=== PATIENT | female | born 1995 | race Caucasian/White ===

== ENCOUNTER 2018-04-10 12:39 | Emergency (ER) | payer OTHER ==
[2018-04-10] MEDS ORDERED: ONDANSETRON 4 MG/2 ML VIAL ONE (13:36)
[2018-04-10] MEDS ORDERED: NA CHLORIDE 0.9% 1,000 ML ONE (13:36)
[2018-04-10 14:06] LABS: Absolute Lymphocytes (CBC) 0.7 K/uL (0.7-4.9); Absolute Monocytes 0.3 K/uL (0.1-1.3); Absolute Neutrophil 2.6 K/uL (1.8-8.0); Basophils % 0.4 % (0-1.3); Eosinophils % 0.3 % (0-4.4); Hematocrit 41.2 % (36.0-45.0); Lymphocytes % 20.2 % (15.3-44.8); MCH 28.8 pg (27.0-35.0); MCV 84.4 fL (80-100); MPV 10.3 fL (7.6-11.3); Monocytes % 9.2 % (3.3-12.3); RBC Red Blood Cell Count 4.88 M/uL (3.86-4.86)
[2018-04-10 14:08] LABS: Bilirubin Direct 0.1 mg/dL (0-0.2); Bilirubin Total 0.4 mg/dL (0.2-1.0); Potassium 4.3 mmol/L (3.5-5.1); Protein, Total 7.6 g/dL (6.4-8.2)
[2018-04-10 14:26] LABS: Urine Blood TRACE (NEG); Urine Glucose NEGATIVE (NEG); Urine Protein NEGATIVE (NEG); Urine Specific Gravity 1.005 (1.005-1.030)
--- NOTE | 2018-04-10 14:33 | ER ---
Nurse's Notes [facility] Name: Abena Carr Age: 22 yrs Sex: Female : 1995 Arrival Date: 04/10/2018 Time: 12:44 Bed 20 Private MD: None, None Diagnosis: Vomiting;Dizziness;Gastroenteritis Presentation: 04/10 12:48 Presenting complaint: Patient states: N/V/D for 3 days and I have been light headed for la1 the last couple days. Also my ribs are hurting on the left sidde. Transition of care: patient was not received from another setting of care. Onset of symptoms was April 10, 2018. Risk Assessment: Do you want to hurt yourself or someone else? Patient reports no desire to harm self or others. Initial Sepsis Screen: Does the patient meet any 2 criteria? No. Patient's initial sepsis screen is negative. Does the patient have a suspected source of infection? No. Patient's initial sepsis screen is negative. Care prior to arrival: None. 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 - Social history:: Smoking status: Patient/guardian denies using tobacco. - Ebola Screening: : No symptoms or risks identified at this time. Screenin:15 Abuse screen: Denies threats or abuse. Nutritional screening: No deficits noted. em Tuberculosis screening: No symptoms or risk factors identified. Fall Risk None identified. Assessment: 13:16 General: Appears in no apparent distress. comfortable, Behavior is calm, cooperative, em appropriate for age, Denies fever. Pain: Complains of pain in left lateral aspect of lower chest Pain currently is 1 out of 10 on a pain scale. Neuro: Level of Consciousness is awake, alert, obeys commands, Oriented to person, place, time, situation, Reports dizziness, Denies weakness headache. Cardiovascular: Capillary refill < 3 seconds Patient's skin is warm and dry. Respiratory: Airway is patent Respiratory effort is even, unlabored, Respiratory pattern is regular, symmetrical. GI: Abdomen is flat, Bowel sounds present X 4 quads. Abd is soft and non tender X 4 quads. Reports nausea, vomiting, Patient currently denies diarrhea. : Urine is clear, Denies burning with urination. EENT: No signs and/or symptoms were reported regarding the EENT system. Derm: Skin is intact, Skin is pink, warm \T\ dry. Musculoskeletal: Range of motion: intact in all extremities. 13:16 Reassessment: I agree with assessment completed by Petey Lew LVN . aa5 14:12 Reassessment: Patient appears in no apparent distress at this time. Patient and/or em family updated on plan of care and expected duration. Pain level reassessed. Patient is alert, oriented x 3, equal unlabored respirations, skin warm/dry/pink. nausea and dizziness improved, rates pain 1/10 Patient states symptoms have improved. 14:50 Reassessment: Patient appears in no apparent distress at this time. Patient and/or em family updated on plan of care and expected duration. Pain level reassessed. Patient is alert, oriented x 3, equal unlabored respirations, skin warm/dry/pink. Patient denies pain at this time. Patient states feeling better. Patient states symptoms have improved. Vital Signs: 12:48 BP 131 / 87; Pulse 72; Resp 16; Temp 97.6; Pulse Ox 98% on R/A; Weight 52.16 kg; Height la1 5 ft. 6 in. (167.64 cm); 14:12 BP 121 / 56; Pulse 68; Resp 18; Pulse Ox 99% on R/A; Pain 1/10; em 12:48 Body Mass Index 18.56 (52.16 kg, 167.64 cm) la1 ED Course: 12:44 Patient arrived in ED. sb2 12:45 None, None is Private Physician. sb2 12:48 Arm band placed on right wrist. la1 12:49 Triage completed. la1 12:57 Diego Bales PA is PHCP. jr8 12:58 Wenceslao Haddad MD is Attending Physician. jr8 13:15 Patient has correct armband on for positive identification. Placed in gown. Bed in low em position. Call light in reach. Adult w/ patient. 13:25 Petey Lew LVN is Primary Nurse. em 13:35 Initial lab(s) drawn, by me, sent to lab. Inserted saline lock: 20 gauge in right em antecubital area, using aseptic technique. Blood collected. 14:49 No provider procedures requiring assistance completed. IV discontinued, intact, em bleeding controlled, No redness/swelling at site. Pressure dressing applied. Administered Medications: 13:42 Drug: Zofran 4 mg Route: IVP; Site: right antecubital; aa5 14:29 Follow up: Response: No adverse reaction; Nausea is decreased em 13:43 Drug: NS 0.9% 1000 ml Route: IV; Rate: 1000 ml; Site: right antecubital; em 14:51 Follow up: IV Status: Completed infusion; IV Intake: 1000ml em Intake: 14:51 IV: 1000ml; Total: 1000ml. em Outcome: 14:32 Discharge ordered by MD. fowler 14:49 Discharged to home ambulatory, with family. em 14:49 Condition: good 14:49 Discharge instructions given to patient, Instructed on discharge instructions, follow up and referral plans. medication usage, Demonstrated understanding of instructions, follow-up care, medications, Prescriptions given X 1. 14:54 Patient left the ED. em Signatures: Petey Lew LVN LVN em Adriane Cronin RN RN aa5 Diego Bales PA PA jr8 Valentin Green RN RN la1 Marjan Esquivel sb2 Corrections: (The following items were deleted from the chart) 18:11 13:16 Pain: Complains of pain in left upper quadrant Pain currently is 1 out of 10 on a aa5 pain scale. em
--- NOTE | 2018-04-10 14:33 | EDPHYS ---
Physician Documentation [facility] Name: Abena Carr Age: 22 yrs Sex: Female : 1995 Arrival Date: 04/10/2018 Time: 12:44 Bed 20 Private MD: None, None ED Physician Wenceslao Haddad HPI: 04/10 14:04 This 32 yrs old Female presents to ER via Ambulatory with complaints of Vomiting, jr8 Dizziness. 14:04 The patient presents to the emergency department with nausea, vomiting, diarrhea. jr8 Onset: The symptoms/episode began/occurred acutely, 3 day(s) ago. Possible causes: unknown. The symptoms are aggravated by food , The symptoms are alleviated by nothing. Associated signs and symptoms: Pertinent positives: dizziness. Severity of symptoms: At their worst the symptoms were moderate in the emergency department the symptoms have improved. The patient has not experienced similar symptoms in the past. The patient has not recently seen a physician. Stated that she thinks she has a stomach bug. Stated that she has had three days of n/v/d. Vomiting has subsided but still has nausea and diarrhea. Feels dizzy when sitting up. Still cannot eat but is able to hold down fluids . 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 - Social history:: Smoking status: Patient/guardian denies using tobacco. - Ebola Screening: : No symptoms or risks identified at this time. ROS: 14:04 Eyes: Negative for injury, pain, redness, and discharge, ENT: Negative for injury, jr8 pain, and discharge, Neck: Negative for injury, pain, and swelling, Cardiovascular: Negative for chest pain, palpitations, and edema, Respiratory: Negative for shortness of breath, cough, wheezing, and pleuritic chest pain, Back: Negative for injury and pain, MS/Extremity: Negative for injury and deformity, Skin: Negative for injury, rash, and discoloration, Neuro: Negative for headache, weakness, numbness, tingling, and seizure. 14:04 Abdomen/GI: Positive for nausea, vomiting, and diarrhea, abdominal cramps, Negative for abdominal pain, abdominal distension, anorexia, dysphagia, hematemesis, black/tarry stool, rectal pain, rectal bleeding, bowel incontinence, flatulence. Exam: 14:04 Eyes: Pupils equal round and reactive to light, extra-ocular motions intact. Lids and jr8 lashes normal. Conjunctiva and sclera are non-icteric and not injected. Cornea within normal limits. Periorbital areas with no swelling, redness, or edema. ENT: Nares patent. No nasal discharge, no septal abnormalities noted. Tympanic membranes are normal and external auditory canals are clear. Oropharynx with no redness, swelling, or masses, exudates, or evidence of obstruction, uvula midline. Mucous membranes moist. Neck: Trachea midline, no thyromegaly or masses palpated, and no cervical lymphadenopathy. Supple, full range of motion without nuchal rigidity, or vertebral point tenderness. No Meningismus. Cardiovascular: Regular rate and rhythm with a normal S1 and S2. No gallops, murmurs, or rubs. Normal PMI, no JVD. No pulse deficits. Respiratory: Lungs have equal breath sounds bilaterally, clear to auscultation and percussion. No rales, rhonchi or wheezes noted. No increased work of breathing, no retractions or nasal flaring. Abdomen/GI: Soft, non-tender, with normal bowel sounds. No distension or tympany. No guarding or rebound. No evidence of tenderness throughout. Back: No spinal tenderness. No costovertebral tenderness. Full range of motion. Skin: Warm, dry with normal turgor. Normal color with no rashes, no lesions, and no evidence of cellulitis. MS/ Extremity: Pulses equal, no cyanosis. Neurovascular intact. Full, normal range of motion. Neuro: Awake and alert, GCS 15, oriented to person, place, time, and situation. Cranial nerves II-XII grossly intact. Motor strength 5/5 in all extremities. Sensory grossly intact. Cerebellar exam normal. Normal gait. Vital Signs: 12:48 BP 131 / 87; Pulse 72; Resp 16; Temp 97.6; Pulse Ox 98% on R/A; Weight 52.16 kg; Height la1 5 ft. 6 in. (167.64 cm); 14:12 BP 121 / 56; Pulse 68; Resp 18; Pulse Ox 99% on R/A; Pain 1/10; em 12:48 Body Mass Index 18.56 (52.16 kg, 167.64 cm) la1 MDM: 12:59 Patient medically screened. [facility] 14:31 Data reviewed: vital signs, nurses notes, lab test result(s), and as a result, I will jr8 discharge patient. Data interpreted: Pulse oximetry: on room air is 99 %. Interpretation: normal. Counseling: I had a detailed discussion with the patient and/or guardian regarding: the historical points, exam findings, and any diagnostic results supporting the discharge/admit diagnosis, lab results, the need for outpatient follow up, a family practitioner, to return to the emergency department if symptoms worsen or persist or if there are any questions or concerns that arise at home. Response to treatment: the patient's symptoms have markedly improved after treatment, patient is well hydrated. 04/10 13:22 Order name: Basic Metabolic Panel; Complete Time: 14:09 [facility] 04/10 13:22 Order name: CBC with Diff; Complete Time: 14:22 [facility] 04/10 13:22 Order name: Creatinine for Radiology; Complete Time: 14:09 [facility] 04/10 13:22 Order name: Hepatic Function; Complete Time: 14: [facility] 04/10 13:22 Order name: Lipase; Complete Time: 14: [facility] 04/10 13:33 Order name: Urine Dipstick--Ancillary (enter results); Complete Time: 14:30 04/10 13:22 Order name: IV Saline Lock; Complete Time: 13:43 [facility] 04/10 13:22 Order name: Labs collected and sent; Complete Time: 13:43 [facility] 04/10 13:22 Order name: Urine Test (obtain specimen); Complete Time: 13:25 [facility] 04/10 13:22 Order name: Urine Dipstick-Ancillary (obtain specimen); Complete Time: 13:25 [facility] Administered Medications: 13:42 Drug: Zofran 4 mg Route: IVP; Site: right antecubital; aa5 14:29 Follow up: Response: No adverse reaction; Nausea is decreased em 13:43 Drug: NS 0.9% 1000 ml Route: IV; Rate: 1000 ml; Site: right antecubital; em 14:51 Follow up: IV Status: Completed infusion; IV Intake: 1000ml em Disposition: 04/11 09:58 Co-signature as Attending Physician, Wenceslao Haddad MD. Disposition: 04/10/18 14:32 Discharged to Home. Impression: Vomiting, Dizziness, Gastroenteritis. - Condition is Stable. - Discharge Instructions: Nausea and Vomiting, Adult. - Prescriptions for Zofran 4 mg Oral Tablet - take 1 tablet by ORAL route every 12 hours As needed; 20 tablet. - Medication Reconciliation Form, Thank You Letter, Antibiotic Education, Prescription Opioid Use form. - Follow up: Private Physician; When: 2 - 3 days; Reason: Recheck today's complaints, Continuance of care, Re-evaluation by your physician. - Problem is new. - Symptoms have improved. Signatures: Dispatcher [employer] EDMS Petey Lew, BUILDING TRADES INSTRUCTOR BUILDING TRADES INSTRUCTOR Adriane Schroeder, RN RN aa5 Diego Bales PA PA jr8 Valentin Green RN RN la1 Wenceslao Haddad MD MD Corrections: (The following items were deleted from the chart) 04/10 14:54 14:32 04/10/2018 14:32 Discharged to Home. Impression: Vomiting; Dizziness; em Gastroenteritis. Condition is Stable. Forms are Medication Reconciliation Form, Thank You Letter, Antibiotic Education, Prescription Opioid Use. Follow up: Private Physician; When: 2 - 3 days; Reason: Recheck today's complaints, Continuance of care, Re-evaluation by your physician. Problem is new. Symptoms have improved. jr8
== END 2018-04-10 14:54 | disposition home or self-care (01) ==
LOC: ER 12:39 → EDBD 12:39 → ER 14:54
DX: K52.9 Noninfective gastroenteritis and colitis, unspecified (principal); R42 Dizziness and giddiness
CPT/HCPCS: 36415; 80048; 80076; 81003; 83690; 85025; 96361; 96374; 99284; J2405; J7030

== ENCOUNTER 2018-05-07 11:42 | Emergency (ER) | payer OTHER ==
[2018-05-07 14:29] LABS: Urine Bacteria 20-50 /HPF (<20); Urine Culture Reflex Order NOT NEEDED; Urine Mucus 2+ /HPF (NONE SEEN); Urine RBC <5 /HPF (NONE SEEN)
--- NOTE | 2018-05-07 14:57 | ER ---
Nurse's Notes [facility] Name: Abena Carr Age: 22 yrs Sex: Female : 1995 Arrival Date: 05/07/2018 Time: 11:44 Bed 10 Private MD: Syed Alvarez E Diagnosis: Urinary tract infection, site not specified;Candidal cystitis and urethritis Presentation: 05/07 12:04 Presenting complaint: Patient states: seen her PCP on and dx with UTI sent home sv with Fluconazole and started having white vaginal discharge yesterday and today started having some brownish vaginal discharge. Transition of care: patient was not received from another setting of care. Onset of symptoms was May 04, 2018. Care prior to arrival: None. 12:04 Method Of Arrival: Ambulatory sv 12:04 Acuity: BRENNA 4 sv 15:04 Risk Assessment: Do you want to hurt yourself or someone else? Patient reports no ss desire to harm self or others. Initial Sepsis Screen: Does the patient meet any 2 criteria? No. Patient's initial sepsis screen is negative. Does the patient have a suspected source of infection? Yes: Dysuria/Frequency/Urgency/UTI. Triage Assessment: 12:04 General: Appears in no apparent distress. uncomfortable, Behavior is calm, cooperative, sv appropriate for age. Pain: Denies pain. EENT: No signs and/or symptoms were reported regarding the EENT system. Neuro: Level of Consciousness is awake, alert, obeys commands, Oriented to person, place, time, situation, Moves all extremities. Full function Gait is steady. Respiratory: Respiratory effort is even, unlabored, Respiratory pattern is regular, symmetrical. 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 - Social history:: Smoking status: Patient/guardian denies using tobacco. - Ebola Screening: : No symptoms or risks identified at this time. Screenin:01 Abuse screen: Denies threats or abuse. Denies injuries from another. Nutritional ss screening: No deficits noted. Tuberculosis screening: No symptoms or risk factors identified. Never had TB. Fall Risk None identified. Assessment: 14:01 General: Appears in no apparent distress. comfortable, Behavior is calm, cooperative, ss appropriate for age, Denies fever, feeling ill, fatigue, chills. Neuro: Level of Consciousness is awake, alert, obeys commands, Oriented to person, place, time. Cardiovascular: Capillary refill < 3 seconds is brisk in bilateral fingers. Respiratory: Airway is patent Respiratory effort is even, unlabored, Respiratory pattern is regular, symmetrical. GI: Patient currently denies abdominal pain, diarrhea, nausea, vomiting. : Reports white-brown vaginal discharge since yesterday. EENT: Throat is clear. Derm: Skin is intact, is healthy with good turgor, Skin is pink, warm \T\ dry. normal. Vital Signs: 12:06 BP 131 / 78; Pulse 88; Resp 16; Temp 98.6; Pulse Ox 100% ; Weight 52.16 kg; Height 5 sv ft. 6 in. (167.64 cm); Pain 0/10; 12:06 Body Mass Index 18.56 (52.16 kg, 167.64 cm) sv ED Course: 11:44 Patient arrived in ED. sb2 11:45 Syed Alvarez MD is Private Physician. sb2 11:59 Haily Dunn FNP-C is [facility]. snw 11:59 Daren Arredondo MD is Attending Physician. snw 12:05 Triage completed. sv 12:06 Arm band placed on. sv 14:01 Unique Davis RN is Primary Nurse. ss 14:01 Patient has correct armband on for positive identification. Bed in low position. Call ss light in reach. 14:55 Syed Alvarez MD is Referral Physician. snw 15:03 No provider procedures requiring assistance completed. Patient did not have IV access ss during this emergency room visit. Administered Medications: No medications were administered Outcome: 14:56 Discharge ordered by . snw 15:03 Discharged to home ambulatory, with significant other. ss 15:03 Condition: good 15:03 Discharge instructions given to patient, Instructed on discharge instructions, follow up and referral plans. medication usage, Demonstrated understanding of instructions, follow-up care, medications, Prescriptions given X Pt instructed to continue her BACTRIM and FLUCONAZOLE as previously prescribed 15:04 Patient left the ED. ss Signatures: Lula Cowan RN RN Haily Dunn FNP-C FNP-Csnw Unique Davis, RN RN ss Marjan Esquivel sb2
--- NOTE | 2018-05-07 14:57 | EDPHYS ---
Physician Documentation [facility] Name: Abena Carr Age: 22 yrs Sex: Female : 1995 Arrival Date: 05/07/2018 Time: 11:44 Bed 10 Private MD: Syed Alvarez E ED Physician Daren Arredondo HPI: 05/07 14:02 This 22 yrs old Female presents to ER via Ambulatory with complaints of snw Urinary Problem. 14:02 Onset: The symptoms/episode began/occurred suddenly, 4 day(s) ago, and became snw persistent. Associated signs and symptoms: Pertinent positives: abdominal pain, mild pressure to lower abdomen. The patient has experienced a previous episode. The patient has been recently seen by a physician: the patient's primary care provider, with similar presenting complaints, given Bactrim and Fluconazole. 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 - Social history:: Smoking status: Patient/guardian denies using tobacco. - Ebola Screening: : No symptoms or risks identified at this time. ROS: 14:01 Constitutional: Negative for fever, chills, and weight loss, Eyes: Negative for injury, snw pain, redness, and discharge, ENT: Negative for injury, pain, and discharge, Neck: Negative for injury, pain, and swelling, Cardiovascular: Negative for chest pain, palpitations, and edema, Respiratory: Negative for shortness of breath, cough, wheezing, and pleuritic chest pain, Abdomen/GI: Negative for abdominal pain, nausea, vomiting, diarrhea, and constipation, Back: Negative for injury and pain, MS/Extremity: Negative for injury and deformity, Skin: Negative for injury, rash, and discoloration, Neuro: Negative for headache, weakness, numbness, tingling, and seizure. 14:01 : Positive for urinary symptoms, vaginal itching, white discharge that today has a dark brownish bloody tint. Exam: 14:00 Constitutional: This is a well developed, well nourished patient who is awake, alert, snw and in no acute distress. Head/Face: Normocephalic, atraumatic. Eyes: Pupils equal round and reactive to light, extra-ocular motions intact. Lids and lashes normal. Conjunctiva and sclera are non-icteric and not injected. Cornea within normal limits. Periorbital areas with no swelling, redness, or edema. ENT: Nares patent. No nasal discharge, no septal abnormalities noted. Tympanic membranes are normal and external auditory canals are clear. Oropharynx with no redness, swelling, or masses, exudates, or evidence of obstruction, uvula midline. Mucous membranes moist. Neck: Trachea midline, no thyromegaly or masses palpated, and no cervical lymphadenopathy. Supple, full range of motion without nuchal rigidity, or vertebral point tenderness. No Meningismus. Chest/axilla: Normal chest wall appearance and motion. Nontender with no deformity. No lesions are appreciated. 14:00 Respiratory: Lungs have equal breath sounds bilaterally, clear to auscultation and percussion. No rales, rhonchi or wheezes noted. No increased work of breathing, no retractions or nasal flaring. Back: No spinal tenderness. No costovertebral tenderness. Full range of motion. Skin: Warm, dry with normal turgor. Normal color with no rashes, no lesions, and no evidence of cellulitis. MS/ Extremity: Pulses equal, no cyanosis. Neurovascular intact. Full, normal range of motion. Neuro: Awake and alert, GCS 15, oriented to person, place, time, and situation. Cranial nerves II-XII grossly intact. Motor strength 5/5 in all extremities. Sensory grossly intact. Cerebellar exam normal. Normal gait. Psych: Awake, alert, with orientation to person, place and time. Behavior, mood, and affect are within normal limits. 14:00 Cardiovascular: Rate: normal, Rhythm: regular, Pulses: no pulse deficits are appreciated, Heart sounds: murmur, grade 2 over 6, heard in the mitral area, Edema: is not appreciated. 14:00 Abdomen/GI: Inspection: abdomen appears normal, Bowel sounds: normal, Palpation: mild abdominal tenderness, in the suprapubic area and left lower quadrant. Vital Signs: 12:06 BP 131 / 78; Pulse 88; Resp 16; Temp 98.6; Pulse Ox 100% ; Weight 52.16 kg; Height 5 sv ft. 6 in. (167.64 cm); Pain 0/10; 12:06 Body Mass Index 18.56 (52.16 kg, 167.64 cm) sv MDM: 13:51 Patient medically screened. [facility] 14:58 Data reviewed: vital signs, nurses notes. Data interpreted: Pulse oximetry: on room air snw is 100 %. Interpretation: normal. Counseling: I had a detailed discussion with the patient and/or guardian regarding: the historical points, exam findings, and any diagnostic results supporting the discharge/admit diagnosis, lab results, the need for outpatient follow up, to return to the emergency department if symptoms worsen or persist or if there are any questions or concerns that arise at home. Special discussion: Based on the history and exam findings, there is no indication for further emergent testing or inpatient evaluation. I discussed with the patient/guardian the need to see the OB Gyne specialist for further evaluation of the symptoms. I discussed with the patient/guardian the need to see the primary care provider for further evaluation of the symptoms. 05/07 11:59 Order name: Urine Culture snw 05/07 11:59 Order name: Urine Microscopic Only; Complete Time: 14:40 snw 05/07 11:59 Order name: Urine Test (obtain specimen); Complete Time: 14:01 snw 05/07 11:59 Order name: Urine Dipstick-Ancillary (obtain specimen); Complete Time: 14:01 snw 05/07 14:59 Order name: Urine Dipstick--Ancillary (enter results) bd 05/07 14:59 Order name: Urine --Ancillary (enter results) bd Administered Medications: No medications were administered Disposition: 16:16 Co-signature as Attending Physician, Daren Arredondo MD I agree with the assessment and [facility] plan of care. Disposition: 05/07/18 14:56 Discharged to Home. Impression: Urinary tract infection, site not specified, Candidal cystitis and urethritis. - Condition is Stable. - Discharge Instructions: Dysuria, How to Take a Sitz Bath, Urinary Tract Infection, Adult, Vaginal Yeast Infection, Adult, Rehydration, Adult. - Work release form, Medication Reconciliation Form, Thank You Letter, Antibiotic Education, Prescription Opioid Use form. - Follow up: Syed Alvarez MD; When: 2 - 3 days; Reason: Recheck today's complaints, Continuance of care, Re-evaluation by your physician. Follow up: Emergency Department; When: As needed; Reason: Worsening of condition. - Notes: Continue Bactrim and Fluconazole Signatures: Dispatcher [employer] EDLula Noel, RN RN Daren Courtney MD MD cha Therrien, Shelly, SOCIAL MEDIA CONTENT MANAGER-C SOCIAL MEDIA CONTENT MANAGER-Csnw Unique Davis RN RN ss Corrections: (The following items were deleted from the chart) 15:04 14:56 05/07/2018 14:56 Discharged to Home. Impression: Urinary tract infection, site ss not specified; Candidal cystitis and urethritis. Condition is Stable. Forms are Medication Reconciliation Form, Thank You Letter, Antibiotic Education, Prescription Opioid Use. Follow up: Syed Alvarez; When: 2 - 3 days; Reason: Recheck today's complaints, Continuance of care, Re-evaluation by your physician. Follow up: Emergency Department; When: As needed; Reason: Worsening of condition. snw
[2018-05-07 16:09] LABS: Urine Blood 1+ (NEG); Urine Glucose NEGATIVE (NEG); Urine Protein NEGATIVE (NEG); Urine Specific Gravity 1.015 (1.005-1.030)
== END 2018-05-07 15:04 | disposition home or self-care (01) ==
LOC: ER 11:42
DX: B37.41 Candidal cystitis and urethritis (principal)
CPT/HCPCS: 81003; 81015; 81025; 87086; 87088; 99282